=== PATIENT | female | born 1955 | race Caucasian/White ===

== ENCOUNTER 2017-02-20 16:43 | Inpatient (IN) | payer OTHER ==
[~2017-02-20] VITALS: Ht 167.6 cm; Wt 85.3 kg
[2017-02-20 17:02] VITALS: BP 114/67
[2017-02-20 17:33] LABS: BASOPHILS # (AUTO) 0.2 K/uL (0.00-0.22); BASOPHILS % (AUTO) 1.9 % (0.0-2.0); EOSINOPHILS # (AUTO) 0.2 K/uL (0-0.4); EOSINOPHILS % (AUTO) 1.6 % (0.0-4.0); HEMATOCRIT 38.8 % (36-48); HEMOGLOBIN 13.1 g/dL (12.0-16.0); LYMPHOCYTES # (AUTO) 2.2 K/uL (2.5-16.5); LYMPHOCYTES % (AUTO) 22.1 % (20.5-51.1); MEAN CORPUSCULAR HEMOGLOBIN 30 pg (27-31); MEAN CORPUSCULAR HGB CONC 34 g/dL (33-37); MEAN CORPUSCULAR VOLUME 90 fL (80-94); MONOCYTES % (AUTO) 9.9 % (1.7-9.3); NEUTROPHILS # (AUTO) 6.2 K/uL (1.8-7.7); NEUTROPHILS % (AUTO) 64.5 % (42.2-75.2); PLATELET COUNT (AUTO) 393 K/uL (140-450); RED CELL DISTRIBUTION WIDTH 12.1 % (11.6-13.7); WHITE BLOOD COUNT (AUTO) 9.8 K/uL (4.8-10.8)
[2017-02-20 17:54] LABS: ALBUMIN 3.3 g/dL (3.4-5.0); ANION GAP 10.4 (8-16); CARBON DIOXIDE 29.7 mmol/L (21-32); CREATININE 0.8 mg/dL (0.6-1.3); POTASSIUM 3.1 mmol/L (3.5-5.1); TOTAL BILIRUBIN 0.8 mg/dL (0.0-1.0)
--- NOTE | 2017-02-20 18:40 | NUR ---
PT AMBULATED TO BED 1.
--- NOTE | 2017-02-20 18:46 | NUR ---
61F BIB DAUGHTER C/O LEFT LOWER QUADRANT ABDOMINAL PAIN, SHARP, NON-RADIATING, 8/10 X 3 DAYS; PT C/O 2 EPISODES OF NAUSEA TODAY, BUT STATES NO VOMITING OR DIARRHEA AT THIS TIME; ABDOMEN SOFT, NON-TENDER, ACTIVE BOWEL SOUNDS X 4 QUADRANTS; PT AA&OX4, PERRLA, BL LUNG SOUNDS CLEAR, RR EVEN/UNLABORED, SKIN IS WARM/DRY/INTACT AT THIS TIME; STEADY GAIT; PT RESTING IN BED WITH HOB ELEVATED AND IN LOWEST POSITION; POSITIONED FOR COMFORT; ER MD MADE AWARE OF STATUS. WILL CONTINUE TO MONITOR.
--- NOTE | 2017-02-20 19:06 | NUR ---
Pt report given to LÁZARO CORREA. Transfer of care at this time.
--- NOTE | 2017-02-20 19:12 | NUR ---
PT RESTING IN BED, NO S/S OF DITRESS NOTED AT THE MOMENT. WILL CONT TO MONITOR.
[2017-02-20] MEDS ORDERED: LEVOFLOXACIN 500 MG/D5W PREMIX 100 ML IV ONE (20:35)
[2017-02-20] MEDS ORDERED: metroNIDAZOLE 500 MG/NS PREMIX 100 ML IV ONE (20:35)
[2017-02-20] MEDS ORDERED: NACL 0.9% 1,000 ML IV ONE (20:55)
[2017-02-20] MEDS ORDERED: ONDANSETRON 4 MG/2 ML VIAL IVP PRN (21:15)
[2017-02-20] MEDS ORDERED: LORazepam 2 MG/ML VIAL IVP PRN (21:15)
[2017-02-20] MEDS ORDERED: MORPHINE SULFATE 2 MG/ML SYR IVP PRN (21:15)
[2017-02-20] MEDS ORDERED: ACETAMINOPHEN 325 MG TAB PO PRN (21:15)
[2017-02-20] MEDS ORDERED: ACETAMINOPHEN EXTRA STRENGTH 500 MG TAB PO ONE (21:25)
[2017-02-20] MEDS ORDERED: GABA400C PO (21:32)
--- NOTE | 2017-02-20 21:34 | NUR ---
Patient will be admitted to care of DR BAEZ. Admited to MED SURG. Will go to room 119A. Belongings list completed. Report to LÁZARO BENOIT.
--- NOTE | 2017-02-20 21:48 | NUR ---
PT TAKEN TO FLOOR VIA WHEEL CHAIR BY EMT. REST OF MEDS SENT WITH PT. FLOOR NURSE NOTIFIED.
[2017-02-20 22:00] VITALS: BP 126/74
--- NOTE | 2017-02-20 22:00 | NUR ---
ADMITTED THIS 61 YEAR OLD FEMALE FROM ER PER WHEELCHAIR WITH CC OF ABDOMINAL PAIN, AMBULATORY WITH STEADY GAIT TO BED, ASSESSMENT DONE, DENIES PAIN AT THIS TIME, ORIENTED TO ROOM AND CALL LIGHT, STARTED ON CLEAR LIQUID DIET ORDERED, TOLERATED BROTH AND NIRMAL LAZO IVPB INFUSING AT THIS TIME, PLAN OF CARE DISCUSSED, CALL LIGHT WITHIN REACH.
[2017-02-20] MEDS: NACL 0.9% 1,000 ML IV SCH (22:28)
--- NOTE | 2017-02-20 22:35 | NUR ---
PT AMBULATED TO BR AND VOIDED FREELY, FLAGYL IVPB INFUSING AT THIS TIME, ALL NEEDS ATTENDED.
[2017-02-20] MEDS ORDERED: PNEUMOCOCCAL VACCINE 23 MCG/0.5 ML VIAL IMVAC PRN (22:45)
[2017-02-20] MEDS ORDERED: INFLUENZA VIRUS VACCINE QUAD 0.5 ML SYR IMVAC PRN (22:45)
[2017-02-20] MEDS: HYDROcodone/APAP 5/325 MG 1 TAB TAB PO PRN (23:28)
[2017-02-20] MEDS ORDERED: POTASSIUM CHLORIDE 10 MEQ TABER PO SCH (23:55)
--- NOTE | 2017-02-21 | NUR ---
PT AWAKE TALKING TO DAUGHTER AT BEDSIDE, MEDICATED EARLIER FOR HEADACHE, IVF INFUSING WELL, DENIES ABDOMINAL PAIN, MAINTAIN ON CLEAR LIQUID DIET, CONTINUE TO MONITOR CLOSELY.
[2017-02-21] MEDS ORDERED: OMEP20TC12 PO (01:34)
[2017-02-21] MEDS ORDERED: ESCI20TA PO (01:34)
[2017-02-21] MEDS ORDERED: LUTE20TA2 PO (01:34)
[2017-02-21] MEDS ORDERED: ACET-2858 PO (01:34)
[2017-02-21] MEDS ORDERED: GABA300C PO (01:34)
[2017-02-21] MEDS ORDERED: ATOR10TA PO (01:34)
[2017-02-21] MEDS: metroNIDAZOLE 500 MG/NS PREMIX 100 ML IV SCH ×2 (04:16→12:55)
--- NOTE | 2017-02-21 04:20 | NUR ---
PT SLEEPING, EASILY AROUSABLE, DUE FLAGYL IVPB ADMINISTERED, DENIES ANY PAIN, MONITORED CLOSELY.
--- NOTE | 2017-02-21 06:00 | NUR ---
ROUNDED ON PT, SLEEPING, NO SIGNS OF DISTRESS, IVF INFUSING WELL, MONITORED CLOSELY.
[2017-02-21 06:08] LABS: BASOPHILS # (AUTO) 0.2 K/uL (0.00-0.22); BASOPHILS % (AUTO) 2.8 % (0.0-2.0); EOSINOPHILS # (AUTO) 0.2 K/uL (0-0.4); EOSINOPHILS % (AUTO) 3.4 % (0.0-4.0); HEMATOCRIT 37.4 % (36-48); HEMOGLOBIN 12.6 g/dL (12.0-16.0); LYMPHOCYTES # (AUTO) 1.9 K/uL (2.5-16.5); LYMPHOCYTES % (AUTO) 28.9 % (20.5-51.1); MEAN CORPUSCULAR HEMOGLOBIN 31 pg (27-31); MEAN CORPUSCULAR HGB CONC 34 g/dL (33-37); MEAN CORPUSCULAR VOLUME 91 fL (80-94); MONOCYTES # (AUTO) 0.8 K/uL (0.8-1.0); NEUTROPHILS # (AUTO) 3.3 K/uL (1.8-7.7); NEUTROPHILS % (AUTO) 52.9 % (42.2-75.2); PLATELET COUNT (AUTO) 330 K/uL (140-450); RED BLOOD CELL COUNT(AUTO) 4.12 MIL/uL (4.20-5.40); RED CELL DISTRIBUTION WIDTH 12.2 % (11.6-13.7); WHITE BLOOD COUNT (AUTO) 6.4 K/uL (4.8-10.8)
[2017-02-21 06:42] LABS: ALBUMIN 2.7 g/dL (3.4-5.0); ANION GAP 9.9 (8-16); CARBON DIOXIDE 29.2 mmol/L (21-32); CREATININE 0.7 mg/dL (0.6-1.3); POTASSIUM 4.1 mmol/L (3.5-5.1); TOTAL BILIRUBIN 0.5 mg/dL (0.0-1.0)
[2017-02-21] MEDS: NACL 0.9% 1,000 ML IV SCH ×3 (07:13→17:13)
--- NOTE | 2017-02-21 07:15 | NUR ---
PT SLEEPING, NO SIGNS OF DISTRESS, REPORT GIVEN TO LÁZARO ROBLERO FOR CONTINUITY OF CARE.
--- NOTE | 2017-02-21 07:16 | NUR ---
PATIENT LYING IN BED AWAKING FROM SLEEP. IN STABLE CONDITION. NO DISTRESS NOTED. RESPIRATIONS EVEN, UNLABORED, ON ROOM AIR. AAOX4, CALM, COOPERATIVE, SKIN COLOR APPROPRIATE TO ETHNICITY, WARM TO TOUCH. SKIN IS INTACT. IV INTACT, PATENT, AND INFUSING. LUNGS CTA ON ALL LOBES. ABDOMEN SOFT, NON-DISTENDED. ABLE TO AMBULATE TO BATHROOM AND BACK TO BED WITH STEADY GAIT. C/O LLQ ABD PAIN, WILL MEDICATE ORDERS. PLAN OF CARE REVIEWED WITH PATIENT. PATIENT VERBALIZED UNDERSTANDING. SAFETY MEASURES IN PLACE, CALL LIGHT WITHIN REACH. WILL CONTINUE TO MONITOR.
[2017-02-21 08:00] VITALS: BP 121/77
[2017-02-21] MEDS ORDERED: ENOXAPARIN 40 MG/0.4 ML SYR SUBQ SCH (09:00)
[2017-02-21] MEDS: HYDROcodone/APAP 5/325 MG 1 TAB TAB PO PRN ×2 (09:09→13:25)
--- NOTE | 2017-02-21 09:10 | NUR ---
PATIENT SITTING IN BED WATCHING TV. NO DISTRESS NOTED. RESPIRATIONS EVEN, UNLABORED ON ROOM AIR. C/O ABD PAIN. MEDICATED WITH NORCO PER ORDERS. SCHEDULED MEDICATIONS DUE. SAFETY MEASURES IN PLACE, CALL LIGHT WITHIN REACH. WILL CONTINUE TO MONITOR.
--- NOTE | 2017-02-21 09:15 | NUR ---
PATIENT SITTING IN BED WATCHING TV. NO DISTRESS NOTED. RESPIRATIONS EVEN, UNLABORED, ON ROOM AIR. C/O OF ABD PAIN, MEDICATED WITH NORCO PER ORDERS. SCHEDULED MEDICATIONS GIVEN. SKIN INTACT. IV INTACT AND INFUSING IVF. SAFETY MEASURES IN PLACE, CALL LIGHT WITHIN REACH. WILL CONTINUE TO MONITOR.
--- NOTE | 2017-02-21 09:15 | NUR ---
DR. CONNORS AT BEDSIDE REVIEWING PLAN OF CARE WITH PATIENT. WILL CONTINUE TO MONITOR.
--- NOTE | 2017-02-21 09:30 | NUR ---
DR. CONNORS AT BEDSIDE REVIEWING PLAN OF CARE WITH PATIENT. WILL CONTINUE TO MONITOR.
--- NOTE | 2017-02-21 09:56 | NUR ---
PATIENT HAS BEEN SCREENED AND CATEGORIZED MODERATE NUTRITION RISK. PATIENT WILL BE SEEN WITHIN 3-5 DAYS OF ADMISSION. 02/23/17-02/25/[address]
[2017-02-21] MEDS ORDERED: CIPR500T4 PO (10:31)
[2017-02-21] MEDS ORDERED: METR250T2 PO (10:31)
--- NOTE | 2017-02-21 11:45 | NUR ---
PATIENT IS LYING DOWN TALKING ON THE PHONE. NO DISTRESS NOTED. DENIES ANY PAIN. CONDITION UNCHANGED. WILL CONTINUE TO MONITOR.
--- NOTE | 2017-02-21 12:06 | NUR ---
CM NOTE INITIAL REVIEW FAXED TO [facility] [phone] EDDIE PH# [phone] SEPTEMBER [phone]
--- NOTE | 2017-02-21 13:01 | NUR ---
PATIENT SITTING IN BED WITH LUNCH TRAY IN FRONT. NO DISTRESS NOTED. PAIN WITHIN TOLERABLE AT THIS TIME. SCHEDULED ANTIBIOTIC MEDICATION GIVEN. DENIES ANY NAUSEA/VOMITING EPISODES TODAY. SAFETY MEASURES IN PLACE, CALL LIGHT WITHIN REACH. WILL CONTINUE TO MONITOR.
--- NOTE | 2017-02-21 13:29 | NUR ---
PATIENT SITTING IN BED. C/O ACHING ON HER HEAD AREA. MEDICATED WITH NORCO PER ORDERS. PATIENT REPORTS HAVE DIARRHEA X1 TODAY. SAFETY MEASURES IN PLACE, CALL LIGHT WITHIN REACH. WILL CONTINUE TO MONITOR.
--- NOTE | 2017-02-21 15:36 | NUR ---
PATIENT LYING IN BED TALKING ON THE PHONE WITH FAMILY MEMBER. NO DISTRESS NOTED. RESPIRATIONS EVEN, UNLABORED, ON ROOM AIR. IV INTACT, PATENT, AND INFUSING IVF PER ORDERS. PATIENT TOOK A BITE OF TURKEY SANDWICH AND FELT A LITTLE NAUSEA, HOWEVER NO VOMITING. PATIENT TO CONTINUE TO TAKE SOLID FOODS SLOWLY. SAFETY MEASURES IN PLACE, CALL LIGHT WITHIN REACH. WILL CONTINUE TO MONITOR.
[2017-02-21 16:00] VITALS: BP 134/80
--- NOTE | 2017-02-21 16:36 | NUR ---
PATIENT LYING IN BED. NO DISTRESS NOTED. COMPLAINTS OF INTERMITTENT DIZZINESS AND NAUSEA THAT STARTED ABOUT 1 HOUR AGO. DENIES ANY VOMITING. REFUSES NAUSEA/MEDICATION AT THIS TIME. PATIENT TO SEE IF ABLE TO TOLERATE SOLID FOODS AT DINNER, AND SEE IF NAUSEA/DIZZINESS IMPROVES WITH MORE FOOD INTAKE. SAFETY MEASURES IN PLACE, CALL LIGHT WITHIN REACH. WILL CONTINUE TO MONITOR.
[2017-02-21] MEDS ORDERED: ONDA4TAB PO (18:12)
--- NOTE | 2017-02-21 18:40 | NUR ---
PATIENT SITTING IN BED COMFORTABLY. NO DISTRESS NOTED. DENIES ANY PAIN. RESPIRATIONS EVEN, UNLABORED, ON ROOM AIR. FLU AND PNA VACCINES GIVEN PER PATIENT REQUEST. PATIENT IS BEING DISCHARGED HOME VIA PRIVATE VEHICLE. DENIES ANY NAUSEA/VOMITING AFTER EATING A REGULAR DIET DINNER. DISCHARGE INSTRUCTIONS/EDUCATION PROVIDED IN [place], PER PATIENT PREFERRED LANGUAGE, FOLLOW-UP INSTRUCTIONS, NEW/CHANGED MEDICATIONS, AND DIET REGIMEN. ANSWERED ALL OF PATIENT'S QUESTIONS REGARDING DISCHARGE. PATIENT VERBALIZED COMPLETE UNDERSTANDING. IV REMOVED WITH MINIMAL BLOOD AND LUMEN COMPLETELY INTACT. ID BANDS REMOVED. PATIENT ABLE TO AMBULATE INDEPENDENTLY WITH STEADY GAIT. PATIENT IN STABLE CONDITION. PATIENT AWAITING FOR DAUGHTER TO ARRIVE TO TAKE HER HOME VIA PRIVATE VEHICLE.
--- NOTE | 2017-02-21 19:30 | NUR ---
PATIENT DAUGHTER ARRIVED TO BRING PATIENT HOME. PATIENT AMBULATED DOWN TO LOBBY WITH STEADY GAIT. PATIENT DISCHARGED HOME VIA PRIVATE VEHICLE IN STABLE CONDITION. Addendum: 02/21/17 at 1939 by Manny Johnson RN DISREGARD NOTE. WRONG PATIENT.
[2017-02-21] MEDS ORDERED: LEVOFLOXACIN 500 MG/D5W PREMIX 100 ML IV SCH (21:00)
--- NOTE | 2017-02-21 21:00 | NUR ---
PATIENT DAUGHTER AND GRANDSON PICKED UP PT TO TAKE HER HOME. PT WHEELED OUT TO MAIN LOBBY. PT DISCHARGED HOME VIA PRIVATE VEHICLE. PT IN STABLE CONDITION.
== END 2017-02-21 21:00 | disposition home or self-care (01) | DRG 244 ==
LOC: MED 16:43 → MTU 21:17
PROVIDERS: ADMIT Hospitalist; ATTEND Hospitalist
PROC: 3E0234Z Introduction of Serum, Toxoid and Vaccine into Muscle, Percutaneous Approach (ICD-10-PCS; principal; 2017-02-21)
PROC: 3E0234Z Introduction of Serum, Toxoid and Vaccine into Muscle, Percutaneous Approach (ICD-10-PCS; 2017-02-21)
DX: K57.32 Diverticulitis of large intestine without perforation or abscess without bleeding (principal); K76.0 Fatty (change of) liver, not elsewhere classified; I10 Essential (primary) hypertension; J45.909 Unspecified asthma, uncomplicated; K57.30 Diverticulosis of large intestine without perforation or abscess without bleeding; Z91.041 Radiographic dye allergy status; Z86.018 Personal history of other benign neoplasm; Z23 Encounter for immunization
CPT/HCPCS: 36415; 80053; 83690; 83735; 85025; 87081; 90658; 90732; 96365; 96375; 99285; J1650; J1956; J3490; J7030

== ENCOUNTER 2017-02-28 15:54 | Emergency (ER) | payer OTHER ==
[~2017-02-28] VITALS: Ht 167.6 cm; Wt 81.6 kg
[~2017-02-28 15:54] MED LIST: ACET-2858 PO; ATOR10TA PO; CIPR500T4 PO; ESCI20TA PO; GABA300C PO; LUTE20TA2 PO; METR250T2 PO; OMEP20TC12 PO; ONDA4TAB PO
[2017-02-28 16:26] VITALS: BP 115/66
--- NOTE | 2017-02-28 16:29 | NUR ---
Patient to bed 11.
--- NOTE | 2017-02-28 16:32 | NUR ---
62F BIB FAMILY C/O LEFT ANKLE PAIN, SHARP, RADIATES UP LEFT CALF, 9/10 X 1 HOUR PRIOR TO ARRIVAL TO ER TODAY; MILD SWELLING NOTED TO SITE AT THIS TIME; PT STATES NO LOC AT TIME OF INCIDENT; LEFT PEDAL PULSE PALPABLE, LEFT CAP REFILL <2 SECONDS, NO LOSS OF SENSATION TO LEFT LEG AT THIS TIME; PT NOTED WITH ABRASION TO RT KNEE, NO ACTIVE BLEEDING NOTED TO SITE AT THIS TIME; PT C/O NAUSEA, BUT STATES NO VOMITING OR DIARRHEA AT THIS TIME; ABDOMEN SOFT, NON-TENDER, ACTIVE BOWEL SOUNDS X 4 QUADRANTS; PT AA&OX4, BL LUNG SOUNDS CLEAR, RR EVEN/UNLABORED, SKIN IS WARM/DRY AT THIS TIME; PT RESTING IN BED WITH HOB ELEVATED AND IN LOWEST POSITION; POSITIONED FOR COMFORT; ER MD MADE AWARE OF STATUS. WILL CONTINUE TO MONITOR.
--- NOTE | 2017-02-28 16:34 | NUR ---
XRAY AT BEDSIDE.
[2017-02-28] MEDS ORDERED: IBUPROFEN 800 MG TAB PO ONE (16:50)
[2017-02-28 18:18] VITALS: BP 103/65
--- NOTE | 2017-02-28 18:18 | NUR ---
Patient discharged with v/s stable. Written and verbal after care instructions given and explained. Patient alert, oriented and verbalized understanding of instructions. Wheel Chair Assisted to car. All questions addressed prior to discharge. ID band removed. Patient advised to follow up with PMD. Rx of MOTRIN 800MG TAB given. Patient educated on indication of medication including possible reaction and side effects. Opportunity to ask questions provided and answered.
== END 2017-02-28 18:18 | disposition home or self-care (01) ==
LOC: MED 15:54
DX: S93.492A Sprain of other ligament of left ankle, initial encounter (principal); S80.01XA Contusion of right knee, initial encounter; J45.909 Unspecified asthma, uncomplicated; I10 Essential (primary) hypertension; Z88.8 Allergy status to other drugs, medicaments and biological substances; Z79.899 Other long term (current) drug therapy; W01.0XXA Fall on same level from slipping, tripping and stumbling without subsequent striking against object, initial encounter; Y93.89 Activity, other specified; Y92.89 Other specified places as the place of occurrence of the external cause; Y99.8 Other external cause status
CPT/HCPCS: 73610; 99284; Q0092

== ENCOUNTER 2017-05-15 13:50 | Emergency (ER) | payer OTHER ==
[~2017-05-15] VITALS: Ht 167.6 cm; Wt 77.1 kg
[2017-05-15 14:57] VITALS: BP 146/94
[2017-05-15] MEDS ORDERED: NEOMYCIN/POLYMYXIN/BACITRACIN 0.9 GM/1 PKT TP ONE (16:35)
[2017-05-15] MEDS ORDERED: ALUMINUM HYD/MAG/SIMETHICONE 30 ML UDC PO ONE (17:00)
[2017-05-15] MEDS ORDERED: DICYCLOMINE HCL LIQUID 10 MG/5 ML UDC PO ONE (17:00)
[2017-05-15] MEDS ORDERED: LIDOCAINE VISCOUS 2% 20 ML UDC PO ONE (17:00)
--- NOTE | 2017-05-15 17:16 | NUR ---
PT TO X-RAY VIA WC
--- NOTE | 2017-05-15 17:26 | NUR ---
RETURNED FROM RADIOLOGY VIA
[2017-05-15 17:55] LABS: BASOPHILS # (AUTO) 0.1 K/uL (0.00-0.22); BASOPHILS % (AUTO) 1.5 % (0.0-2.0); EOSINOPHILS # (AUTO) 0.2 K/uL (0-0.4); EOSINOPHILS % (AUTO) 2.4 % (0.0-4.0); HEMATOCRIT 44.2 % (36-48); HEMOGLOBIN 14.6 g/dL (12.0-16.0); LYMPHOCYTES # (AUTO) 2.4 K/uL (2.5-16.5); LYMPHOCYTES % (AUTO) 24.8 % (20.5-51.1); MEAN CORPUSCULAR HEMOGLOBIN 30 pg (27-31); MEAN CORPUSCULAR HGB CONC 33 g/dL (33-37); MEAN CORPUSCULAR VOLUME 89 fL (80-94); MONOCYTES # (AUTO) 0.4 K/uL (0.8-1.0); MONOCYTES % (AUTO) 4.5 % (1.7-9.3); NEUTROPHILS # (AUTO) 6.7 K/uL (1.8-7.7); NEUTROPHILS % (AUTO) 66.8 % (42.2-75.2); PLATELET COUNT (AUTO) 486 K/uL (140-450); RED BLOOD CELL COUNT(AUTO) 4.95 MIL/uL (4.20-5.40); RED CELL DISTRIBUTION WIDTH 12.3 % (11.6-13.7); WHITE BLOOD COUNT (AUTO) 9.8 K/uL (4.8-10.8)
[2017-05-15] MEDS ORDERED: KETOROLAC 60 MG/2 ML VIAL IM ONE (18:50)
--- NOTE | 2017-05-15 19:00 | NUR ---
medicated for back pain as directed----dc home instructions given to pt
--- NOTE | 2017-05-15 19:08 | NUR ---
Patient discharged with v/s stable. Written and verbal after care instructions given and explained. Patient alert, oriented and verbalized understanding of instructions. Ambulatory with steady gait. All questions addressed prior to discharge. ID band removed. Patient advised to follow up with PMD. Rx of carafate/bentyl/tramadol/nexium given. Patient educated on indication of medication including possible reaction and side effects. Opportunity to ask questions provided and answered.
[2017-05-15 19:11] VITALS: BP 142/88
== END 2017-05-15 19:08 | disposition home or self-care (01) ==
LOC: MED 13:50
DX: K21.9 Gastro-esophageal reflux disease without esophagitis (principal); J45.909 Unspecified asthma, uncomplicated; I10 Essential (primary) hypertension; Z90.49 Acquired absence of other specified parts of digestive tract; Z91.041 Radiographic dye allergy status
CPT/HCPCS: 36415; 71045; 84484; 85025; 96372; 99285; J1885

== ENCOUNTER 2017-07-01 15:39 | Emergency (ER) | payer OTHER ==
[~2017-07-01] VITALS: Ht 167.6 cm; Wt 86.6 kg
[2017-07-01 15:49] VITALS: BP 116/76
--- NOTE | 2017-07-01 15:55 | NUR ---
PT AMBULATED TO ER CHAIR D
--- NOTE | 2017-07-01 16:00 | NUR ---
62F BIB FAMILY C/O RT EAR PRESSURE, NON-RADIATING, 06/17 X 2 MONTHS; NO BLEEDING OR DRAINAGE NOTED FROM SITE AT THIS TIME; PT STATES NO HEARING LOSS AT THIS TIME; PT STATES NO TRAUMA OR INJURY TO SITE AT THIS TIME; PT AA&OX4, BL LUNG SOUNDS CLEAR, RR EVEN/UNLABORED, SKIN IS WARM/DRY/INTACT WITH EVEN AND STEADY GAIT; PT RESTING IN CHAIR, POSITIONED FOR COMFORT; ER MD MADE AWARE OF STATUS. WILL CONTINUE TO MONITOR.
--- NOTE | 2017-07-01 16:02 | NUR ---
ER MD DR. CHENG EVALUATING PT AT THIS TIME.
--- NOTE | 2017-07-01 16:40 | NUR ---
Patient discharged with v/s stable. Written and verbal after care instructions given and explained. Patient verbalized understanding. Ambulatory with steady gait. All questions addressed prior to discharge. Advised to follow up with PMD.
[2017-07-01 16:41] VITALS: BP 129/74
== END 2017-07-01 16:40 | disposition home or self-care (01) ==
LOC: MED 15:39
DX: H61.21 Impacted cerumen, right ear (principal); J45.909 Unspecified asthma, uncomplicated; K21.9 Gastro-esophageal reflux disease without esophagitis; I10 Essential (primary) hypertension; E78.5 Hyperlipidemia, unspecified; Z91.041 Radiographic dye allergy status
CPT/HCPCS: 99281

== ENCOUNTER 2019-07-10 19:56 | Emergency (ER) | payer OTHER ==
[~2019-07-10] VITALS: Ht 167.6 cm; Wt 72.6 kg
[~2019-07-10 19:56] MED LIST changes: -ACET-2858 PO; +HYDR-5092 PO
[2019-07-10 20:05] VITALS: BP 127/82
--- NOTE | 2019-07-10 20:09 | NUR ---
PT AMBULATED TO ER BED 04
[2019-07-10] MEDS ORDERED: IBUPROFEN 800 MG TAB PO ONE (20:20)
--- NOTE | 2019-07-10 20:30 | NUR ---
64/F presents ambulatory to ED, c/o L hand pain, x1 day. Reports being injured by cactus 1 week ago, reports swelling started today. L hand metacarpal region pain/swelling noted, +CMS. Pt afebrile. Pt awake and alert, skin normal color warm and dry, rr even and unlabored.
[2019-07-10] MEDS ORDERED: CEPHALEXIN 500 MG CAP PO ONE (20:50)
[2019-07-10] MEDS ORDERED: SULFAMETH/TRIMETH DS 800/160MG 1 TAB PO ONE (20:50)
[2019-07-10 21:17] VITALS: BP 144/70
--- NOTE | 2019-07-10 21:18 | NUR ---
Patient discharged with v/s stable. Written and verbal after care instructions given and explained. Patient alert, oriented and verbalized understanding of instructions. Ambulatory with steady gait. All questions addressed prior to discharge. ID band removed. Patient advised to follow up with PMD. Rx of keflex, bactrim, ibuprofen given. Patient educated on indication of medication including possible reaction and side effects. Opportunity to ask questions provided and answered.
== END 2019-07-10 21:18 | disposition home or self-care (01) ==
LOC: MED 19:56
DX: L03.114 Cellulitis of left upper limb (principal); J45.909 Unspecified asthma, uncomplicated; K21.9 Gastro-esophageal reflux disease without esophagitis; I10 Essential (primary) hypertension; E78.5 Hyperlipidemia, unspecified; Z79.899 Other long term (current) drug therapy; Z88.8 Allergy status to other drugs, medicaments and biological substances
CPT/HCPCS: 73130; 99284

== ENCOUNTER 2019-11-17 14:15 | Emergency (ER) | payer OTHER ==
[~2019-11-17] VITALS: Ht 165.1 cm; Wt 72.6 kg
[2019-11-17 14:24] VITALS: BP 115/69
--- NOTE | 2019-11-17 14:35 | NUR ---
Ambulated to restroom steady gait to provide urine sample.
--- NOTE | 2019-11-17 14:36 | NUR ---
64/F C/O NAUSEA, LLQ ABDOMINAL PAIN X 1 WEEK. STATES SYMPTOMS FEEL LIKE PREVIOUS EPISODES OF DIVERTICULITIS. HAS HAD 4X DIVERTICULITIS IN THE PAST. DENIES FEVER, VOMITING, SICK CONTACTS. LBM TODAY, NORMAL CONSISTENCY, SMALLER AMOUNT THAN NORMAL. STATES URINARY FREQUENCY, DENIES DYSURIA. APPEARS NAD. VSS. MED HX: ASTHMA, HYSTERECTOMY, ABDOMINAL SURGERY 8 YEARS AGO.
--- NOTE | 2019-11-17 15:57 | NUR ---
BACK TO BED [address] VIA W/C
--- NOTE | 2019-11-17 15:58 | NUR ---
GERMINATION WORKER AT BEDSIDE FOR BLOOD DRAW
--- NOTE | 2019-11-17 16:07 | NUR ---
PT STATES PAIN IS TOLERABLE AT THIS TIME. VSS.
[2019-11-17 16:13] LABS: BASOPHILS # (AUTO) 0.1 K/uL (0.00-0.22); BASOPHILS % (AUTO) 0.9 % (0.0-2.0); EOSINOPHILS # (AUTO) 0.4 K/uL (0-0.4); EOSINOPHILS % (AUTO) 5.5 % (0.0-4.0); HEMATOCRIT 35.4 % (36-48); HEMOGLOBIN 11.4 g/dL (12.0-16.0); LYMPHOCYTES % (AUTO) 30.8 % (20.5-51.1); MEAN CORPUSCULAR HEMOGLOBIN 26 pg (27-31); MEAN CORPUSCULAR HGB CONC 32 g/dL (33-37); MEAN CORPUSCULAR VOLUME 81.8 fL (80-94); MONOCYTES # (AUTO) 0.5 K/uL (0.8-1.0); NEUTROPHILS # (AUTO) 3.6 K/uL (1.8-7.7); NEUTROPHILS % (AUTO) 55.8 % (42.2-75.2); PLATELET COUNT (AUTO) 502 K/uL (140-450); RED BLOOD CELL COUNT(AUTO) 4.33 MIL/uL (4.20-5.40); RED CELL DISTRIBUTION WIDTH 16.2 % (11.6-13.7); WHITE BLOOD COUNT (AUTO) 6.5 K/uL (4.8-10.8)
[2019-11-17 16:26] LABS: APPEARANCE,URINE HAZY (CLEAR); BILIRUBIN,URINE NEGATIVE (NEGATIVE); BLOOD, URINE TRACE (NEGATIVE); COLOR,URINE YELLOW (YELLOW); LEUKOCYTE ESTERASE ,URINE 1+ (NEGATIVE); NITRITE, URINE POSITIVE (NEGATIVE); UGLUCOSE NEGATIVE (NEGATIVE)
[2019-11-17 16:27] LABS: RBC,URINE 0-5 /HPF (0-5)
[2019-11-17 16:36] LABS: ALBUMIN 3.6 g/dL (3.4-5.0); ANION GAP 12.5 (8-16); CARBON DIOXIDE 27.4 mmol/L (21-32); CREATININE 1.1 mg/dL (0.6-1.3); POTASSIUM 3.9 mmol/L (3.5-5.1); TOTAL BILIRUBIN 0.3 mg/dL (0.0-1.0)
[2019-11-17] MEDS ORDERED: AMOXIL/CLAVULANATE 875/125 MG 1 TAB PO STA (16:46)
--- NOTE | 2019-11-17 17:07 | NUR ---
DR. CALDERA DISCUSSING D/C POC WITH PATIENT
[2019-11-17 17:08] VITALS: BP 138/73
== END 2019-11-17 17:08 | disposition home or self-care (01) ==
LOC: MED 14:15
DX: K57.92 Diverticulitis of intestine, part unspecified, without perforation or abscess without bleeding (principal); J45.909 Unspecified asthma, uncomplicated; K21.9 Gastro-esophageal reflux disease without esophagitis; I10 Essential (primary) hypertension; Z88.6 Allergy status to analgesic agent; Z79.899 Other long term (current) drug therapy; Z90.49 Acquired absence of other specified parts of digestive tract
CPT/HCPCS: 36415; 80053; 81001; 82150; 83690; 84703; 85025; 87086; 87186; 99284

== ENCOUNTER 2019-12-08 16:26 | Emergency (ER) | payer OTHER ==
[~2019-12-08] VITALS: Ht 167.6 cm; Wt 72.6 kg
[2019-12-08 16:36] VITALS: BP 130/80
[2019-12-08] MEDS ORDERED: MORPHINE SULFATE 4 MG/ML SYR IVP ONE (17:05)
[2019-12-08] MEDS ORDERED: ONDANSETRON 4 MG/2 ML VIAL IVP ONE (17:05)
[2019-12-08 17:24] LABS: BASOPHILS % (AUTO) 0.4 % (0.0-2.0); EOSINOPHILS # (AUTO) 0.2 K/uL (0-0.4); EOSINOPHILS % (AUTO) 1.4 % (0.0-4.0); HEMATOCRIT 34.9 % (36-48); HEMOGLOBIN 11.4 g/dL (12.0-16.0); LYMPHOCYTES # (AUTO) 1.4 K/uL (2.5-16.5); LYMPHOCYTES % (AUTO) 11.9 % (20.5-51.1); MEAN CORPUSCULAR HEMOGLOBIN 27 pg (27-31); MEAN CORPUSCULAR HGB CONC 33 g/dL (33-37); MEAN CORPUSCULAR VOLUME 81.5 fL (80-94); MONOCYTES # (AUTO) 0.6 K/uL (0.8-1.0); NEUTROPHILS # (AUTO) 9.5 K/uL (1.8-7.7); NEUTROPHILS % (AUTO) 81.3 % (42.2-75.2); PLATELET COUNT (AUTO) 382 K/uL (140-450); RED BLOOD CELL COUNT(AUTO) 4.29 MIL/uL (4.20-5.40); RED CELL DISTRIBUTION WIDTH 16.6 % (11.6-13.7); WHITE BLOOD COUNT (AUTO) 11.7 K/uL (4.8-10.8)
[2019-12-08 17:28] LABS: ANION GAP 13.5 (8-16); CREATININE 0.8 mg/dL (0.6-1.3); POTASSIUM 3.5 mmol/L (3.5-5.1)
[2019-12-08 17:39] LABS: ANION GAP 13.5 (8-16); POTASSIUM 3.5 mmol/L (3.5-5.1)
[2019-12-08 17:40] LABS: CREATININE 0.8 mg/dL (0.6-1.3)
[2019-12-08 17:41] LABS: ALBUMIN 3.3 g/dL (3.4-5.0)
[2019-12-08 17:44] LABS: TOTAL BILIRUBIN 0.3 mg/dL (0.0-1.0)
[2019-12-08] MEDS ORDERED: predniSONE 20 MG TAB PO ONE (17:55)
[2019-12-08] MEDS ORDERED: diphenhydrAMINE 50 MG CAP PO ONE (17:55)
[2019-12-08 20:25] VITALS: BP 142/83
== END 2019-12-08 20:25 | disposition home or self-care (01) ==
LOC: MED 16:26
DX: R10.30 Lower abdominal pain, unspecified (principal); J45.909 Unspecified asthma, uncomplicated; K21.9 Gastro-esophageal reflux disease without esophagitis; I10 Essential (primary) hypertension; Z88.6 Allergy status to analgesic agent; Z79.899 Other long term (current) drug therapy
CPT/HCPCS: 36415; 74177; 80048; 80053; 81002; 83690; 85025; 96374; 96375; 99284; J2270; J2405; J7512; Q0163; Q9967